=== PATIENT | male | born 1985 | race Caucasian/White ===

== ENCOUNTER → 2020-07-16 | Day surgery (SDC) | payer OTHER ==
[~2020-07-16] VITALS: Ht 182.9 cm; Wt 137.0 kg
[~2020-07-16] MED LIST: CLARITIN10 MG PO; EFFEXOR 37.537.5 MG PO; SINGULAIR10 MG PO; TRAZODONE HCL50 MG PO; TRICOR48 MG PO; VITAMIN D21250 MCG PO
[2020-07-16 06:47] LABS: HEMOGLOBIN 16.5 gm/dl (14.0-17.5); RED BLOOD COUNT 5.49 M/UL (4.20-5.50); WHITE BLOOD COUNT 8.9 K/UL (4.5-11.0)
[2020-07-16 07:12] LABS: BUN/CREATININE RATIO 10 (0-10)
== END | disposition home or self-care (01) ==
LOC: OR 06:02
PROVIDERS: Orthopaedic Surgery
DX: S43.432A Superior glenoid labrum lesion of left shoulder, initial encounter (principal); M75.112 Incomplete rotator cuff tear or rupture of left shoulder, not specified as traumatic; M25.812 Other specified joint disorders, left shoulder; M75.52 Bursitis of left shoulder; E78.5 Hyperlipidemia, unspecified; J45.909 Unspecified asthma, uncomplicated; F41.9 Anxiety disorder, unspecified; F32.9 Major depressive disorder, single episode, unspecified; Z79.899 Other long term (current) drug therapy; V89.2XXA Person injured in unspecified motor-vehicle accident, traffic, initial encounter
CPT/HCPCS: 36415; 71045; 80048; 85025; 93005; C1713; J0171; J0592; J0690; J1100; J2250; J2704; J2710; J2795; J3010; J7120